=== PATIENT | female | born 1945 | race Caucasian/White ===

== ENCOUNTER 2024-01-16 14:23 | Emergency (ER) | payer MEDICARE, BC ==
[2024-01-16 15:26] LABS: BASOPHILS ABSOLUTE AUTO 0.04 K/uL (0.00-0.20); BASOPHILS PERCENT AUTO 0.3 % (0.0-1.0); EOSINOPHILS ABSOLUTE AUTO 0.04 K/uL (0.00-0.45); EOSINOPHILS PERCENT AUTO 0.3 % (0.0-6.0); IMMATURE GRAN ABSOLUTE AUTO 0.06 K/uL (0.00-0.05); IMMATURE GRAN PERCENT AUTO 0.5 % (0.0-0.4); LYMPHOCYTES ABSOLUTE AUTO 1.47 K/uL (1.00-4.80); LYMPHOCYTES PERCENT AUTO 11.3 % (24.0-44.0); MONOCYTES ABSOLUTE AUTO 1.11 K/uL (0.00-0.80); MONOCYTES PERCENT AUTO 8.6 % (0.0-8.0); NEUTROPHILS ABSOLUTE AUTO 10.24 K/uL (1.80-7.70); PLATELET COUNT,PLT 391 K/uL (150-400); WHITE BLOOD CELL COUNT,WBC 12.96 K/uL (3.9-11.3)
[2024-01-16 15:51] LABS: CALCIUM 9.8 mg/dL (8.5-10.1); CARBON DIOXIDE,CO2 40.8 mmol/L (21.0-32.0); CREATININE 1.4 mg/dL (0.6-1.0); EST CRCL DRUG DOSING (CG) 29.52 mL/min
[2024-01-16 15:53] LABS: RED BLOOD CELL COUNT 5.15 M/uL (4.10-5.30)
[2024-01-16 15:54] LABS: MEAN CORPUSCULAR VOLUME 89.3 fL (83.0-99.0)
[2024-01-16 16:04] LABS: POTASSIUM,K 1.5 mmol/L (3.5-5.1)
[2024-01-16] MEDS: Potassium Chloride 20 MEQ Tab.ER PO ONE (16:55)
[2024-01-16] MEDS: NS with KCl 40mEq 1,000 ML IV SCH (16:55)
[2024-01-16] MEDS ORDERED: NS with KCl 40mEq 1,000 ML IV SCH (21:15)
== END 2024-01-16 21:25 ==
LOC: MW.ED 14:23
DX: R55 Syncope and collapse (principal); I24.9 Acute ischemic heart disease, unspecified; E87.6 Hypokalemia; Z79.899 Other long term (current) drug therapy; Z91.040 Latex allergy status; Z75.8 Other problems related to medical facilities and other health care
CPT/HCPCS: 36415; 70450; 71045; 80048; 83735; 84484; 85025; 93005; 96365; 96366; 99285; A9270; J3480; 93010; 99291

== ENCOUNTER 2024-12-04 14:25 | Emergency (ER) | payer MEDICARE, BC | END 2024-12-04 16:23 | disposition home or self-care (01) | LOC: MW.ED 14:25 | DX: K08.89 Other specified disorders of teeth and supporting structures (principal); I10 Essential (primary) hypertension; E78.00 Pure hypercholesterolemia, unspecified; E03.9 Hypothyroidism, unspecified; Z90.49 Acquired absence of other specified parts of digestive tract; Z91.040 Latex allergy status; Z79.890 Hormone replacement therapy; Z79.899 Other long term (current) drug therapy | CPT/HCPCS: 99282; 99283 ==